=== PATIENT | male | born 1990 | race Two or more races ===

== ENCOUNTER 2019-12-31 13:19 | Emergency (ER) | payer SELFPAY ==
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
[2019-12-31 13:28] VITALS: BP 146/104; PULSE 90; TEMP 98.1
== END 2019-12-31 15:05 | disposition home or self-care (01) ==
LOC: FER 13:19
DX: S20.212A Contusion of left front wall of thorax, initial encounter (principal)
CPT/HCPCS: 71101-TC-LT-FY; 99283-25